=== PATIENT | male | born 1975 | race Caucasian/White ===

== ENCOUNTER 2020-04-06 14:43 | Emergency (ER) | payer SELFPAY ==
[2020-04-06] MEDS ORDERED: Sodium Chloride 0.9% 10 ML Syringe FLUSH PRN (15:10)
--- NOTE | 2020-04-06 15:19 | EDM.PDOCBH ---
<OfficerAri - Last Filed: 04/06/20 15:17> ED HPI GENERAL MEDICAL PROBLEM - General Chief Complaint: Drug or Alcohol Abuse Time Seen by Provider: 04/06/20 14:56 Source of Information: Reports: Patient, EMS, RN Notes Reviewed History Limitations: Reports: Intoxication - History of Present Illness INITIAL COMMENTS - FREE TEXT/NARRATIVE: 44-year-old gentleman presents emergency department today complaint of sleepiness, he was found by EMS laying [place] the street [place] difficult to arouse was brought to the emergency department for further evaluation he does arouse to voice and follows commands he admits to consuming alcohol earlier today denies any pain shortness of breath, nausea or vomiting - Related Data Allergies Allergy/AdvReac Type Severity Reaction Status Date / Time No Known Allergies Allergy Verified 01/10/16 10:42 Home Meds: Home Meds NK [No Known Home Meds] 01/10/16 [History] Past Medical History Psychiatric History: Reports: Addiction Social & Family History - Tobacco Use Smoking Status *Q: Unknown Ever Smoked - Caffeine Use Caffeine Use: Reports: Coffee - Recreational Drug Use Recreational Drug Use: No ED ROS GENERAL - Review of Systems Review Of Systems: Unable To Obtain Reason Not Obtained: Intoxication ED EXAM, BEHAVIORAL HEALTH - Physical Exam Exam: See Below Exam Limited By: Intoxication General Appearance: Alert, WD/WN, No Apparent Distress Eye Exam: Bilateral Eye: Normal Inspection Head: Atraumatic, Normocephalic Neck: Normal Inspection, Supple, Non-Tender, Full Range of Motion Respiratory/Chest: No Respiratory Distress, Lungs Clear, Normal Breath Sounds, No Accessory Muscle Use, Chest Non-Tender Cardiovascular: Regular Rate, Rhythm, No Murmur GI/Abdominal: Soft, Non-Tender Departure - Departure Disposition: Against Medical Advice 07 Clinical Impression: Alcohol intoxication Qualifiers: Complication of substance-induced condition: uncomplicated Qualified Code(s): F10.920 - Alcohol use, unspecified with intoxication, uncomplicated - Discharge Information Referrals: PCP,None [Primary Care Provider] - Forms: ED Department Discharge Sepsis Event Note (ED) - Evaluation Sepsis Screening Result: No Definite Risk <Wayne Garza - Last Filed: 04/06/20 20:22> COURSE, BEHAVIORAL HEALTH COMP - Course Vital Signs: Last Vital Signs Temp 36.7 C 04/06/20 19:41 Pulse 86 04/06/20 19:41 Resp 16 08/31/20 19:41 BP 115/79 04/06/20 19:41 Pulse Ox 92 L 04/06/20 19:41 Orders, Labs, Meds: Active Orders 24 hr Category Date Time Status DRUG SCREEN, URINE [URCHEM] Stat Lab 04/06/20 15:59 Ordered Peripheral IV Insertion Adult [OM.PC] Urgent Oth 04/06/20 15:10 Ordered Laboratory Tests 04/06/20 04/06/20 04/06/20 Range/Units 15:23 15:23 15:23 WBC 5.7 (4.5-11.0) K/uL RBC 4.71 (4.30-5.90) M/uL Hgb 15.6 H (12.0-15.0) g/dL Hct 46.3 (40.0-54.0) % MCV 98 (80-98) fL MCH 33 H (27-31) pg MCHC 34 (32-36) % Plt Count 240 (150-400) K/uL Neut % (Auto) 49 (36-66) % Lymph % (Auto) 42 (24-44) % Rowan % (Auto) 8 H (2-6) % Eos % (Auto) 0 L (2-4) % Baso % (Auto) 2 H (0-1) % PT (9.5-12.0) sec INR (0.80-1.20) Sodium 146 (140-148) mmol/L Potassium 3.6 (3.6-5.2) mmol/L Chloride 108 (100-108) mmol/L Carbon Dioxide 27 (21-32) mmol/L Anion Gap 10.9 (5.0-14.0) mmol/L BUN 10 (7-18) mg/dL Creatinine 1.1 (0.8-1.3) mg/dL Est Cr Clr Drug Dosing 89.37 mL/min Estimated GFR (MDRD) > 60 (>60) Glucose 120 H (74-106) mg/dL Calcium 8.2 L (8.5-10.1) mg/dL Total Bilirubin 0.2 D (0.2-1.0) mg/dL AST 53 H D (15-37) U/L ALT 63 (12-78) U/L Alkaline Phosphatase 79 (46-116) U/L Ammonia (11-32) mmol/L Total Protein 7.2 (6.4-8.2) g/dL Albumin 3.8 (3.4-5.0) g/dL Globulin 3.4 (2.3-3.5) g/dL Albumin/Globulin Ratio 1.1 L (1.2-2.2) Ethyl Alcohol 366 mg/dL 04/06/20 04/06/20 Range/Units 15:23 15:23 WBC (4.5-11.0) K/uL RBC (4.30-5.90) M/uL Hgb (12.0-15.0) g/dL Hct (40.0-54.0) % MCV (80-98) fL MCH (27-31) pg MCHC (32-36) % Plt Count (150-400) K/uL Neut % (Auto) (36-66) % Lymph % (Auto) (24-44) % Rowan % (Auto) (2-6) % Eos % (Auto) (2-4) % Baso % (Auto) (0-1) % PT 10.6 (9.5-12.0) sec INR 0.97 (0.80-1.20) Sodium (140-148) mmol/L Potassium (3.6-5.2) mmol/L Chloride (100-108) mmol/L Carbon Dioxide (21-32) mmol/L Anion Gap (5.0-14.0) mmol/L BUN (7-18) mg/dL Creatinine (0.8-1.3) mg/dL Est Cr Clr Drug Dosing mL/min Estimated GFR (MDRD) (>60) Glucose (74-106) mg/dL Calcium (8.5-10.1) mg/dL Total Bilirubin (0.2-1.0) mg/dL AST (15-37) U/L ALT (12-78) U/L Alkaline Phosphatase (46-116) U/L Ammonia 10 L (11-32) mmol/L Total Protein (6.4-8.2) g/dL Albumin (3.4-5.0) g/dL Globulin (2.3-3.5) g/dL Albumin/Globulin Ratio (1.2-2.2) Ethyl Alcohol mg/dL Medications Discontinued Medications Generic Name Dose Route Start Last Admin Trade Name Freq PRN Reason Stop Dose Admin Multivitamins/Minerals 10 ml/ 1,016.2 mls @ 500 mls/hr 04/06/20 16:43 04/06/20 17:02 Thiamine HCl 200 mg/ Folic IV 04/06/20 18:44 500 mls/hr Acid 1 mg/ Magnesium Sulfate 2 ONETIME ONE Administration gm/ Dextrose/Lactated Ringer' s Sodium Chloride 10 ml 04/06/20 15:10 04/06/20 15:20 Saline Flush FLUSH 10 ml ASDIRECTED PRN Administration Keep Vein Open Re-Assessment/Re-Exam: Ate a meal here in the ER, was able to safely walk about the ER. At this point told nursing he was walking home. Didn't want to wait for discharge instructions. Departure - Departure Time of Disposition: 20:05 Condition: Fair - Discharge Information *PRESCRIPTION DRUG MONITORING PROGRAM REVIEWED*: Not Applicable *COPY OF PRESCRIPTION DRUG MONITORING REPORT IN PATIENT RAYMUNDO: Not Applicable Sepsis Event Note (ED) - Focused Exam Vital Signs: Vital Signs Temp Pulse Resp BP Pulse Ox 04/06/20 19:41 36.7 C 86 16 115/79 92 L 04/06/20 17:10 88 114/73 04/06/20 14:48 36.4 C 90 16 116/69 96 04/06/20 14:45 36.4 C 90 16 116/69 96
[2020-04-06] MEDS ORDERED: MVI, Adult with Vitamin K 10 ML, Thiamine 200 MG, Folic Acid 1 MG, Magnesium Sulfate 2 ... IV ONE ×5 (16:43)
[2020-04-06 19:42] VITALS: BP 115/79; PULSE 86
== END 2020-04-06 20:10 | disposition left against medical advice (07) ==
LOC: JP.ED 14:43
DX: F10.129 Alcohol abuse with intoxication, unspecified (principal); Y90.8 Blood alcohol level of 240 mg/100 ml or more
CPT/HCPCS: 36415; 80053; 80307; 82140; 85025; 85610; 96365; 96366; 99284; J3411; J3475; J7121; J3490

== ENCOUNTER 2022-05-08 02:03 | Emergency (ER) | payer SELFPAY ==
[2022-05-08 02:19] VITALS: BP 139/85
[2022-05-08 02:59] VITALS: PULSE 90
[2022-05-08 03:07] LABS: ESTIMATED GFR 75 mL/min (>60)
[2022-05-08] MEDS ORDERED: Diphtheria,Pertussis(Acell),Tetanus Vaccine 0.5 ML Syringe IM ONE (03:18)
== END 2022-05-08 08:38 | disposition home or self-care (01) ==
LOC: JP.ED 02:03
DX: S02.2XXB Fracture of nasal bones, initial encounter for open fracture (principal); F15.10 Other stimulant abuse, uncomplicated; F10.920 Alcohol use, unspecified with intoxication, uncomplicated; Y90.8 Blood alcohol level of 240 mg/100 ml or more; Z23 Encounter for immunization
CPT/HCPCS: 36415; 70450; 70486; 80053; 80307; 85025; 90471; 90715; 99284; 99284-25

== ENCOUNTER 2022-06-16 16:59 | Emergency (ER) | payer SELFPAY ==
[2022-06-16] MEDS ORDERED: HYDROmorphone 1 MG/ML Syringe IM ONE (18:11)
[2022-06-16] MEDS ORDERED: Ketorolac 30 MG/ML SDV IM ONE (18:11)
[2022-06-16 19:18] VITALS: BP 110/65; PULSE 82
== END 2022-06-16 19:53 | disposition home or self-care (01) ==
LOC: JP.ED 16:59
DX: S67.190A Crushing injury of right index finger, initial encounter (principal); S61.310A Laceration without foreign body of right index finger with damage to nail, initial encounter; W23.1XXA Caught, crushed, jammed, or pinched between stationary objects, initial encounter
CPT/HCPCS: 73140; 96372; 99283; J1170; J1885

== ENCOUNTER 2022-09-14 12:38 | Emergency (ER) | payer SELFPAY ==
[2022-09-14 12:57] VITALS: BP 157/86; PULSE 101
[2022-09-14 13:49] LABS: ESTIMATED GFR 93 mL/min (>60)
== END 2022-09-14 13:50 | disposition left against medical advice (07) ==
LOC: JP.ED 12:38
DX: F10.10 Alcohol abuse, uncomplicated (principal); Z72.0 Tobacco use; Z79.899 Other long term (current) drug therapy
CPT/HCPCS: 36415; 80053; 80307; 85025; 99283

== ENCOUNTER 2023-12-07 17:56 | Emergency (ER) | payer SELFPAY ==
[2023-12-07 18:10] LABS: BASOPHILS ABSOLUTE AUTO 0.08 K/uL (0.00-0.10); BASOPHILS PERCENT AUTO 0.9 % (0.1-1.3); HEMATOCRIT 40.6 % (38.4-49.7); HEMOGLOBIN 14.5 g/dL (12.9-16.9); IMMATURE GRAN PERCENT AUTO 0.2 % (0.0-0.7); LYMPHOCYTES ABSOLUTE AUTO 3.47 K/uL (0.8-3.3); MEAN CORPUSCULAR HEMOGLOBIN 31.6 pg (31.6-35.5); MEAN CORPUSCULAR HGB CONC 35.7 g/dL (31.6-35.5); MEAN CORPUSCULAR VOLUME 88.5 fL (81.4-99.0); MONOCYTES PERCENT AUTO 6.4 % (3.3-12.6); NEUTROPHILS ABSOLUTE AUTO 5.22 K/uL (1.0-7.6); NEUTROPHILS PERCENT AUTO 55.5 % (40.0-78.1); PLATELET COUNT,PLT 330 K/uL (130-375); RED BLOOD CELL COUNT 4.59 M/uL (4.14-5.76); WHITE BLOOD CELL COUNT,WBC 9.4 K/uL (3.2-11.0)
[2023-12-07 18:15] LABS: IMMATURE GRAN ABSOLUTE AUTO 0.02 K/uL (0.00-0.23)
[2023-12-07] MEDS ORDERED: Nitroglycerin 0.4 MG Tab.SL SL SCH (18:15)
[2023-12-07] MEDS: Nitroglycerin 0.4 MG Tab.SL SL ONE ×2 (18:17→18:31)
[2023-12-07] MEDS: Ondansetron 4 MG/2 ML SDV IVPUSH ONE (18:18)
[2023-12-07 18:26] LABS: A/G RATIO 1.1 (1.2-2.2); ALANINE AMINOTRANSFERASE,ALT 28 U/L (12-78); ALBUMIN 4.4 g/dL (3.4-5.0); ALKALINE PHOSPHATASE 90 U/L (46-116); ANION GAP 12.2 mmol/L (5.0-14.0); ASPARTATE AMNIOTRANSFERASE,AST 22 U/L (15-37); BILIRUBIN TOTAL 0.3 mg/dL (0.2-1.0); BLOOD UREA NITROGEN,BUN 9 mg/dL (7-18); CALCIUM 9.1 mg/dL (8.5-10.1); CARBON DIOXIDE,CO2 27 mmol/L (21-32); CHLORIDE,CL 101 mmol/L (100-108); CREATININE 1.1 mg/dL (0.8-1.3); EST CRCL DRUG DOSING (CG) 82.95 mL/min; ESTIMATED GFR 82 mL/min (>60); GLUCOSE RANDOM 110 mg/dL (74-106); POTASSIUM,K 3.8 mmol/L (3.6-5.2); PROTEIN TOTAL,TP 8.3 g/dL (6.4-8.2); SODIUM,NA 140 mmol/L (140-148)
[2023-12-07] MEDS: Sodium Chloride 0.9% 1,000 ML IV ONE (18:29)
[2023-12-07] MEDS: HYDROmorphone 0.5 MG/0.5 ML Syringe IVPUSH ONE (18:29)
[2023-12-07] MEDS: Aspirin 325 MG Tab.EC PO ONE (20:16)
[2023-12-07] MEDS: LORazepam 1 MG Tab PO ONE (20:16)
[2023-12-07] MEDS: Ketorolac 30 MG/ML SDV IVPUSH ONE (20:46)
[2023-12-07 22:09] VITALS: BP 98/53; PULSE 100
== END 2023-12-07 22:35 | disposition home or self-care (01) ==
LOC: JP.ED 17:56
DX: R07.1 Chest pain on breathing (principal); F17.210 Nicotine dependence, cigarettes, uncomplicated; Z79.899 Other long term (current) drug therapy
CPT/HCPCS: 36415; 71045; 80053; 80307; 84484; 85025; 85379; 86140; 93005; 93010; 96374; 96375; 99283; 99285; A9270; J1170; J1885; J2405; J7030

== ENCOUNTER 2024-03-20 14:05 | Emergency (ER) | payer SELFPAY ==
[2024-03-20 14:14] VITALS: BP 144/93; PULSE 102
[2024-03-20 14:35] LABS: BASOPHILS ABSOLUTE AUTO 0.07 K/uL (0.00-0.10); BASOPHILS PERCENT AUTO 1.4 % (0.1-1.3); EOSINOPHILS ABSOLUTE AUTO 0.07 K/uL (0.00-0.40); EOSINOPHILS PERCENT AUTO 1.4 % (0.0-5.4); HEMATOCRIT 38.5 % (38.4-49.7); HEMOGLOBIN 13.6 g/dL (12.9-16.9); LYMPHOCYTES PERCENT AUTO 35.1 % (11.4-47.7); MEAN CORPUSCULAR HEMOGLOBIN 32.3 pg (31.6-35.5); MEAN CORPUSCULAR HGB CONC 35.3 g/dL (31.6-35.5); MEAN CORPUSCULAR VOLUME 91.4 fL (81.4-99.0); MONOCYTES ABSOLUTE AUTO 0.83 K/uL (0.20-0.90); MONOCYTES PERCENT AUTO 17.1 % (3.3-12.6); NEUTROPHILS ABSOLUTE AUTO 2.17 K/uL (1.0-7.6); PLATELET COUNT,PLT 236 K/uL (130-375); RED BLOOD CELL COUNT 4.21 M/uL (4.14-5.76); WHITE BLOOD CELL COUNT,WBC 4.8 K/uL (3.2-11.0)
[2024-03-20 14:56] LABS: A/G RATIO 1.2 (1.2-2.2); ALANINE AMINOTRANSFERASE,ALT 39 U/L (12-78); ALKALINE PHOSPHATASE 101 U/L (46-116); ANION GAP 12.4 mmol/L (5.0-14.0); ASPARTATE AMNIOTRANSFERASE,AST 28 U/L (15-37); BILIRUBIN TOTAL 0.2 mg/dL (0.2-1.0); BLOOD UREA NITROGEN,BUN 4 mg/dL (7-18); CALCIUM 8.3 mg/dL (8.5-10.1); CARBON DIOXIDE,CO2 27 mmol/L (21-32); CHLORIDE,CL 104 mmol/L (100-108); EST CRCL DRUG DOSING (CG) 91.25 mL/min; ESTIMATED GFR 92 mL/min (>60); GLUCOSE RANDOM 130 mg/dL (74-106); POTASSIUM,K 4.1 mmol/L (3.6-5.2); PROTEIN TOTAL,TP 7.4 g/dL (6.4-8.2); SODIUM,NA 143 mmol/L (140-148)
[2024-03-20 15:01] LABS: AMPHETAMINES SCREEN, URINE NEGATIVE (NEGATIVE); BARBITURATE SCREEN,URINE NEGATIVE (NEGATIVE); BENZODIAZEPINES SCREEN,URINE NEGATIVE (NEGATIVE); METHADONE SCREEN, URINE NEGATIVE (NEGATIVE); METHAMPHETAMINES SCREEN, URINE NEGATIVE (NEGATIVE); OXYCODONE SCREEN,URINE NEGATIVE (NEGATIVE); PROPOXYPHENE SCREEN,URINE NEGATIVE (NEGATIVE); THC SCREEN,URINE 50 NG/ML NEGATIVE (NEGATIVE)
[2024-03-20] MEDS: Ondansetron 4 MG Tab.DIS PO ONE (16:43)
[2024-03-20] MEDS: Diazepam 5 MG Tab PO ONE (16:43)
== END 2024-03-20 17:36 | disposition other institution (70) ==
LOC: JP.ED 14:05
DX: F10.230 Alcohol dependence with withdrawal, uncomplicated (principal); R78.0 Finding of alcohol in blood; F17.210 Nicotine dependence, cigarettes, uncomplicated; Y90.8 Blood alcohol level of 240 mg/100 ml or more; Z79.899 Other long term (current) drug therapy
CPT/HCPCS: 36415; 80053; 80305; 80307; 85025; 99284; A9270; Q0162

== ENCOUNTER 2024-05-29 06:24 | Day surgery (SDC) | payer MEDICAID ==
[2024-05-29] MEDS ORDERED: Midazolam 1 MG/ML 2 ML SDV ONE (06:43)
[2024-05-29] MEDS ORDERED: Propofol 200 MG/20 ML SDV ONE ×5 (06:43→08:15)
[2024-05-29] MEDS ORDERED: fentaNYL 50 MCG/ML SDV ONE (06:44)
[2024-05-29] MEDS ORDERED: Sodium Chloride 0.9% 1,000 ML IV SCH (07:00)
[2024-05-29] MEDS: Lactated Ringers 1,000 ML IV SCH (07:09)
[2024-05-29 09:18] VITALS: BP 142/92; PULSE 64
== END 2024-05-29 09:35 | disposition home or self-care (01) ==
LOC: JP.SDS 06:24
PROVIDERS: ATTEND Surgery
DX: C18.9 Malignant neoplasm of colon, unspecified (principal); D12.2 Benign neoplasm of ascending colon; D12.3 Benign neoplasm of transverse colon
CPT/HCPCS: 00811; 45385; 45390; J2250; J2704; J3010; J7120; 88305; 88341; 88342

== ENCOUNTER 2024-09-03 14:22 | Emergency (ER) | payer MEDICAID | END 2024-09-03 15:32 | disposition left against medical advice (07) | LOC: JP.ED 14:22 | DX: Z53.21 Procedure and treatment not carried out due to patient leaving prior to being seen by health care provider (principal) ==

== ENCOUNTER 2025-04-10 01:53 | Emergency (ER) | payer MEDICAID ==
[2025-04-10 02:18] LABS: BASOPHILS ABSOLUTE AUTO 0.17 K/uL (0.00-0.10); BASOPHILS PERCENT AUTO 1.9 % (0.1-1.3); EOSINOPHILS ABSOLUTE AUTO 0.07 K/uL (0.00-0.40); EOSINOPHILS PERCENT AUTO 0.8 % (0.0-5.4); IMMATURE GRAN PERCENT AUTO 0.2 % (0.0-0.7); LYMPHOCYTES ABSOLUTE AUTO 3.16 K/uL (0.8-3.3); LYMPHOCYTES PERCENT AUTO 36.2 % (11.4-47.7); MONOCYTES ABSOLUTE AUTO 0.85 K/uL (0.20-0.90); MONOCYTES PERCENT AUTO 9.7 % (3.3-12.6); NEUTROPHILS ABSOLUTE AUTO 4.46 K/uL (1.0-7.6); NEUTROPHILS PERCENT AUTO 51.2 % (40.0-78.1); PLATELET COUNT,PLT 273 K/uL (130-375); RED BLOOD CELL COUNT 4.00 M/uL (4.14-5.76); WHITE BLOOD CELL COUNT,WBC 8.7 K/uL (3.2-11.0)
[2025-04-10 02:22] VITALS: PULSE 96
[2025-04-10 02:26] LABS: IMMATURE GRAN ABSOLUTE AUTO 0.02 K/uL (0.00-0.23)
[2025-04-10 02:32] LABS: A/G RATIO 1.0 (1.2-2.2); ALANINE AMINOTRANSFERASE,ALT 71 U/L (12-78); ASPARTATE AMNIOTRANSFERASE,AST 98 U/L (15-37); BILIRUBIN TOTAL 0.3 mg/dL (0.2-1.0); BLOOD UREA NITROGEN,BUN 3 mg/dL (7-18); CARBON DIOXIDE,CO2 23 mmol/L (21-32); CHLORIDE,CL 105 mmol/L (100-108); CREATININE 0.9 mg/dL (0.8-1.3); ESTIMATED GFR 103 mL/min (>60); GLUCOSE RANDOM 186 mg/dL (74-106); POTASSIUM,K 3.8 mmol/L (3.6-5.2); PROTEIN TOTAL,TP 8.5 g/dL (6.4-8.2); SODIUM,NA 142 mmol/L (140-148)
[2025-04-10 03:01] LABS: AMPHETAMINES SCREEN, URINE NEGATIVE (NEGATIVE); METHAMPHETAMINES SCREEN, URINE NEGATIVE (NEGATIVE)
[2025-04-10 03:02] LABS: METHADONE SCREEN, URINE NEGATIVE (NEGATIVE); OXYCODONE SCREEN,URINE NEGATIVE (NEGATIVE); PROPOXYPHENE SCREEN,URINE NEGATIVE (NEGATIVE); THC SCREEN,URINE 50 NG/ML NEGATIVE (NEGATIVE)
[2025-04-10 04:00] VITALS: BP 140/87
== END 2025-04-10 04:01 | disposition other institution (70) ==
LOC: JP.ED 01:53
DX: F10.120 Alcohol abuse with intoxication, uncomplicated (principal); Y90.8 Blood alcohol level of 240 mg/100 ml or more
CPT/HCPCS: 36415; 80053; 80305; 80307; 85025; 99284; A9270

== ENCOUNTER 2025-07-02 07:14 | Day surgery (SDC) | payer MEDICAID ==
[2025-07-02] MEDS ORDERED: Propofol 200 MG/20 ML SDV ONE ×2 (07:29→09:54)
[2025-07-02] MEDS ORDERED: Midazolam 1 MG/ML 2 ML SDV ONE (07:29)
[2025-07-02] MEDS ORDERED: fentaNYL 100 MCG/2 ML SDV ONE (07:29)
[2025-07-02] MEDS: Lactated Ringers 1,000 ML IV SCH (08:02)
[2025-07-02 11:45] VITALS: BP 128/83; PULSE 85
== END 2025-07-02 12:00 | disposition home or self-care (01) ==
LOC: JP.SDS 07:14
PROVIDERS: ATTEND Surgery
DX: D12.3 Benign neoplasm of transverse colon (principal); K92.2 Gastrointestinal hemorrhage, unspecified; K64.8 Other hemorrhoids; Z98.0 Intestinal bypass and anastomosis status
CPT/HCPCS: 00811; 45385; 45390; 45398; J2250; J2704; J3010; J7120

== ENCOUNTER 2025-07-11 08:14 | Inpatient (IN) | payer MEDICAID ==
[2025-07-11] MEDS ORDERED: Naloxone 0.4 MG/ML SDV IVPUSH PRN (09:02)
[2025-07-11 09:17] LABS: BASOPHILS ABSOLUTE AUTO 0.08 K/uL (0.00-0.10); BASOPHILS PERCENT AUTO 1.1 % (0.1-1.3); EOSINOPHILS PERCENT AUTO 0.0 % (0.0-5.4); IMMATURE GRAN ABSOLUTE AUTO 0.04 K/uL (0.00-0.23); IMMATURE GRAN PERCENT AUTO 0.5 % (0.0-0.7); LYMPHOCYTES ABSOLUTE AUTO 1.73 K/uL (0.8-3.3); LYMPHOCYTES PERCENT AUTO 23.1 % (11.4-47.7); MONOCYTES ABSOLUTE AUTO 0.80 K/uL (0.20-0.90); MONOCYTES PERCENT AUTO 10.7 % (3.3-12.6); NEUTROPHILS ABSOLUTE AUTO 4.83 K/uL (1.0-7.6); NEUTROPHILS PERCENT AUTO 64.6 % (40.0-78.1); PLATELET COUNT,PLT 132 K/uL (130-375); RED BLOOD CELL COUNT 2.25 M/uL (4.14-5.76); WHITE BLOOD CELL COUNT,WBC 7.5 K/uL (3.2-11.0)
[2025-07-11 09:17] LABS: BASE EXCESS VENOUS 3.4 mm/L; BICARBONATE,VENOUS 27.0 mmol/L; O2 SATURATION VENOUS 83.7; OXYHEMOGLOBIN 77.9 %; PCO2 VENOUS 38.7 mm/Hg; PH,VENOUS 7.459 (7.350-7.450); TOTAL HEMOGLOBIN 6.6 g/dL (13.5-18.0)
[2025-07-11 09:20] LABS: PO2 VENOUS 57.0 mm/Hg
[2025-07-11 09:22] LABS: EOSINOPHILS ABSOLUTE AUTO 0.00 K/uL (0.00-0.40)
[2025-07-11] MEDS: Prochlorperazine 10 MG/2 ML SDV IVPUSH ONE (09:28)
[2025-07-11 09:41] LABS: INR 1.3
[2025-07-11 09:57] LABS: A/G RATIO 0.8 (1.2-2.2); ALANINE AMINOTRANSFERASE,ALT 61 U/L (12-78); ASPARTATE AMNIOTRANSFERASE,AST 209 U/L (15-37); BILIRUBIN TOTAL 1.6 mg/dL (0.2-1.0); BLOOD UREA NITROGEN,BUN 3 mg/dL (7-18); CARBON DIOXIDE,CO2 27 mmol/L (21-32); CHLORIDE,CL 102 mmol/L (100-108); CREATININE 1.0 mg/dL (0.8-1.3); EST CRCL DRUG DOSING (CG) 87.39 mL/min; ESTIMATED GFR 91 mL/min (>60); GLUCOSE RANDOM 129 mg/dL (74-106); POTASSIUM,K 3.5 mmol/L (3.6-5.2); PRO B-TYPE NATRIUR PEPT,BNPPRO 95 pg/mL (5-125); PROTEIN TOTAL,TP 7.4 g/dL (6.4-8.2); SODIUM,NA 141 mmol/L (140-148)
[2025-07-11] MEDS ORDERED: Iopamidol 612 MG/ML 100 ML Bottle IV SCH (10:00)
[2025-07-11 10:02] LABS: TROPONIN I HIGH SENSITIVITY < 4.0 pg/mL (<=60.3)
[2025-07-11] MEDS: LORazepam 2 MG/ML SDV IVPUSH PRN (10:03)
[2025-07-11 10:24] LABS: CORONAVIRUS COVID-19 NAA NEGATIVE (NEGATIVE); INFLUENZA A NAA NEGATIVE (NEGATIVE); INFLUENZA B NAA NEGATIVE (NEGATIVE); RESPIRATORY SYNCYTIAL VIR NAA NEGATIVE (NEGATIVE)
[2025-07-11] MEDS: Sodium Chloride 0.9% 10 ML Syringe FLUSH ONE (11:04)
[2025-07-11] MEDS: Iopamidol 755 Mg/ML 100 ML Bottle IV SCH (11:04)
[2025-07-11 16:06] LABS: AMPHETAMINES SCREEN, URINE NEGATIVE (NEGATIVE); METHADONE SCREEN, URINE NEGATIVE (NEGATIVE); METHAMPHETAMINES SCREEN, URINE NEGATIVE (NEGATIVE); OXYCODONE SCREEN,URINE NEGATIVE (NEGATIVE); PROPOXYPHENE SCREEN,URINE NEGATIVE (NEGATIVE); THC SCREEN,URINE 50 NG/ML NEGATIVE (NEGATIVE)
[2025-07-11] MEDS: Polyethylene Glycol 3350 Powder 238 GM Bot PO ONE (16:17)
[2025-07-11] MEDS: PHENobarbital Sodium 65 MG/ML SDV IVPUSH PRN (16:48)
[2025-07-11] MEDS: Ondansetron 4 MG/2 ML SDV IV PRN (18:30)
[2025-07-11] MEDS: Water For Injection, Sterile 40 ML ONE (21:02)
[2025-07-12 05:51] LABS: PLATELET COUNT,PLT 98.0 K/uL (130-375); RED BLOOD CELL COUNT 2.6 M/uL (4.14-5.76); WHITE BLOOD CELL COUNT,WBC 6.1 K/uL (3.2-11.0)
[2025-07-12 06:12] LABS: A/G RATIO 0.7 (1.2-2.2); ALANINE AMINOTRANSFERASE,ALT 51 U/L (12-78); ASPARTATE AMNIOTRANSFERASE,AST 184 U/L (15-37); BILIRUBIN TOTAL 2.7 mg/dL (0.2-1.0); BLOOD UREA NITROGEN,BUN 3 mg/dL (7-18); CARBON DIOXIDE,CO2 27 mmol/L (21-32); CHLORIDE,CL 106 mmol/L (100-108); CREATININE 1.3 mg/dL (0.8-1.3); EST CRCL DRUG DOSING (CG) 67.23 mL/min; ESTIMATED GFR 67 mL/min (>60); GLUCOSE RANDOM 116 mg/dL (74-106); POTASSIUM,K 3.7 mmol/L (3.6-5.2); PROTEIN TOTAL,TP 6.6 g/dL (6.4-8.2); SODIUM,NA 142 mmol/L (140-148)
[2025-07-12] MEDS: Albuterol 0.083% 2.5 MG/3 ML Neb Soln NEB PRN (07:21)
[2025-07-12] MEDS ORDERED: Midazolam 1 MG/ML 2 ML SDV ONE (08:26)
[2025-07-12] MEDS ORDERED: Propofol 200 MG/20 ML SDV ONE ×3 (08:26→09:16)
[2025-07-12] MEDS ORDERED: fentaNYL 100 MCG/2 ML SDV ONE (08:26)
[2025-07-12] MEDS ORDERED: Lactated Ringers 1,000 ML ONE (09:02)
[2025-07-12] MEDS: Lidocaine 1% with EPINEPHrine 1:100,000 50 ML MDV ONE (09:20)
[2025-07-12] MEDS: Magnesium Sulfate 2 GM/50 mL 2 GM in Premix Bag 1 BAG IV SCH (10:13)
[2025-07-12] MEDS: Piperacillin/Tazobactam/Dext 4.5 GM in Premix Bag 1 BAG IV SCH ×2 (10:13→17:58)
[2025-07-13 05:50] LABS: PLATELET COUNT,PLT 83.0 K/uL (130-375); RED BLOOD CELL COUNT 2.72 M/uL (4.14-5.76); WHITE BLOOD CELL COUNT,WBC 7.6 K/uL (3.2-11.0)
[2025-07-13 06:04] LABS: BLOOD UREA NITROGEN,BUN 3.0 mg/dL (7-18); CARBON DIOXIDE,CO2 28.0 mmol/L (21-32); CHLORIDE,CL 103.0 mmol/L (100-108); CREATININE 1.5 mg/dL (0.8-1.3); EST CRCL DRUG DOSING (CG) 58.26 mL/min; ESTIMATED GFR 56.0 mL/min (>60); GLUCOSE RANDOM 119.0 mg/dL (74-106); POTASSIUM,K 3.5 mmol/L (3.6-5.2); SODIUM,NA 138.0 mmol/L (140-148)
[2025-07-13] MEDS: Potassium Chloride 20 MEQ Tab.ER PO ONE ×2 (08:45→16:30)
[2025-07-13 09:02] LABS: APPEARANCE,URINE CLEAR (CLEAR); GLUCOSE,URINE NEGATIVE (NEGATIVE); OCCULT BLOOD,URINE NEGATIVE (NEGATIVE)
[2025-07-13 09:05] LABS: SQUAMOUS EPITHELIAL CELLS,UR FEW /HPF
[2025-07-13 09:06] LABS: UROTHELIAL CELLS,URINE NOT SEEN /HPF
[2025-07-13] MEDS ORDERED: Furosemide 40 MG/4 ML VIAL IVPUSH ONE (10:50)
[2025-07-13 11:33] LABS: CORONAVIRUS COVID-19 NAA NEGATIVE (NEGATIVE); INFLUENZA A NAA NEGATIVE (NEGATIVE); INFLUENZA B NAA NEGATIVE (NEGATIVE); RESPIRATORY SYNCYTIAL VIR NAA NEGATIVE (NEGATIVE)
[2025-07-13] MEDS: Iopamidol 612 MG/ML 100 ML Bottle IV PRN (13:41)
[2025-07-13] MEDS: Sodium Chloride 0.9% 10 ML Syringe FLUSH ONE (21:59)
[2025-07-14 05:39] LABS: PLATELET COUNT,PLT 101.0 K/uL (130-375); RED BLOOD CELL COUNT 2.93 M/uL (4.14-5.76); WHITE BLOOD CELL COUNT,WBC 8.2 K/uL (3.2-11.0)
[2025-07-14 05:50] LABS: BLOOD UREA NITROGEN,BUN 3.0 mg/dL (7-18); CARBON DIOXIDE,CO2 25.0 mmol/L (21-32); CHLORIDE,CL 112.0 mmol/L (100-108); CREATININE 1.3 mg/dL (0.8-1.3); EST CRCL DRUG DOSING (CG) 67.23 mL/min; ESTIMATED GFR 67.0 mL/min (>60); GLUCOSE RANDOM 109.0 mg/dL (74-106); POTASSIUM,K 4.0 mmol/L (3.6-5.2); SODIUM,NA 149.0 mmol/L (140-148)
[2025-07-14 11:27] VITALS: BP 120/72; PULSE 96
[2025-07-14] MEDS ORDERED: Piperacillin/Tazobactam/Dext 4.5 GM in Premix Bag 1 BAG IV SCH (14:00)
== END 2025-07-14 11:55 | disposition home or self-care (01) | DRG 393 ==
LOC: JP.ED 08:14 → JP.ICU 11:09
PROVIDERS: ADMIT Hospitalist; ATTEND Internal Medicine
PROC: 30233H1 Transfusion of Nonautologous Whole Blood into Peripheral Vein, Percutaneous Approach (ICD-10-PCS; principal; 2025-07-11)
PROC: 3E03329 Introduction of Other Anti-infective into Peripheral Vein, Percutaneous Approach (ICD-10-PCS; 2025-07-11)
PROC: HZ2ZZZZ Detoxification Services for Substance Abuse Treatment (ICD-10-PCS; 2025-07-11)
PROC: 30233H1 Transfusion of Nonautologous Whole Blood into Peripheral Vein, Percutaneous Approach (ICD-10-PCS; 2025-07-12)
PROC: 0DJD8ZZ Inspection of Lower Intestinal Tract, Via Natural or Artificial Opening Endoscopic (ICD-10-PCS; 2025-07-12)
DX: K64.8 Other hemorrhoids (principal); J96.01 Acute respiratory failure with hypoxia; D62 Acute posthemorrhagic anemia; F10.139 Alcohol abuse with withdrawal, unspecified; K81.9 Cholecystitis, unspecified; F10.129 Alcohol abuse with intoxication, unspecified; F41.9 Anxiety disorder, unspecified; K64.4 Residual hemorrhoidal skin tags; F17.200 Nicotine dependence, unspecified, uncomplicated; K76.0 Fatty (change of) liver, not elsewhere classified; F32.A Depression, unspecified; Z79.1 Long term (current) use of non-steroidal anti-inflammatories (NSAID); Z79.891 Long term (current) use of opiate analgesic; Z79.899 Other long term (current) drug therapy; Z85.038 Personal history of other malignant neoplasm of large intestine; Z98.890 Other specified postprocedural states; Y90.8 Blood alcohol level of 240 mg/100 ml or more
CPT/HCPCS: 36415; 36430; 71046; 71275; 71275-26; 74177; 74177-26; 76705; 80048; 80053; 80202; 80305-QW; 80307; 81001; 82803; 83605; 83690; 83735; 83880; 84443; 84484; 85018; 85025; 85027; 85379; 85610; 86140; 86850; 86900; 86901; 86920; 86922; 87040; 87637; 93005; 93010; 94640; 96361; 96374; 96375; 99223; 99233; 99238; 99285; 99285-25; A9270-GY; J0780; J2060; J2250; J2405; J2543; J2560; J2704; J3010; J3373; J3430; J3475; J7030; J7040; J7050; J7120; P9016; Q9967